=== PATIENT | female | born 1990 | race African-American/Black ===

== ENCOUNTER 2017-10-23 22:45 | Emergency (ER) | payer SELFPAY ==
[~2017-10-23] VITALS: Ht 170.2 cm; Wt 87.8 kg
[2017-10-23 22:50] VITALS: BP 149/106
--- NOTE | 2017-10-23 22:55 | NUR ---
PT ASSISTED BACK TO LOBBY
--- NOTE | 2017-10-24 00:25 | NUR ---
PATIENT PRESENTS TO ED S/P RIGHT SHOULDER DISLOCATION. PATIENT STATES SHE WAS SEEN YESTERDA Y 10/22/17 AT [facility]. PATIENT STATES THEY DID NOT GIVE HER ANY MEDICATIONS AND SENT HER HOME TO TAKE IBUPROFEN. PATIENT ALSO STATES WHEN SHE GOT HOME SHE "FELT MY SHOULDER SLIPPING OUT OF PLACE AND HEARD IT CLICKING". PATIENT STATES SHE TRIED TO CALL HER PRIMARY FOR AN APPOINTMENT BUT WAS UNABLE TO BE SEEN FOR TWO WEEKS. PT DENIES N/V/D; SKIN IS PINK/WARM/DRY; AAOX4 WITH EVEN AND STEADY GAIT; LUNGS CLEAR BL; HR EVEN AND REGULAR; PT DENIES ANY FEVER, CP, SOB, OR COUGH AT THIS TIME; PATIENT STATES PAIN OF 8/10 AT THIS TIME; VSS; PATIENT POSITIONED FOR COMFORT; HOB ELEVATED; BEDRAILS UP X1; BED DOWN. ER MD MADE AWARE OF PT STATUS.
[2017-10-24] MEDS ORDERED: KETOROLAC 30 MG/ML VIAL IM ONE (01:15)
[2017-10-24 02:25] VITALS: BP 128/88
--- NOTE | 2017-10-24 02:25 | NUR ---
Patient discharged with v/s stable. Written and verbal after care instructions given and explained. Patient alert, oriented and verbalized understanding of instructions. Ambulatory with steady gait. All questions addressed prior to discharge. ID band removed. Patient advised to follow up with OR[facility] DR AT [facility]. CONTACT INFORMATION PROVIDED. Rx of IBUPROFEN given. Patient educated on indication of medication including possible reaction and side effects. Opportunity to ask questions provided and answered.
== END 2017-10-24 02:25 | disposition home or self-care (01) ==
LOC: MED 22:45
DX: M75.101 Unspecified rotator cuff tear or rupture of right shoulder, not specified as traumatic (principal)
CPT/HCPCS: 73030; 81025; 96372; 99284; J1885